=== PATIENT | female | born 1985 | race Two or more races ===

== ENCOUNTER 2019-04-15 15:35 | Emergency (ER) | payer OTHER ==
[~2019-04-15] VITALS: Ht 172.7 cm; Wt 170.1 kg
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
[2019-04-15] MEDS ORDERED: HYDROCODONE/APAP 10/325MG 1 EA TABLET ONE (16:29)
[2019-04-15] MEDS ORDERED: HYDROCODONE/APAP 10/325MG 1 EA TABLET PO ONE (16:30)
--- NOTE | 2019-04-15 16:48 | NUR ---
RETAIL FIELD SUPERVISOR AT BEDSIDE
--- NOTE | 2019-04-15 17:43 | NUR ---
Patient discharged to home in stable condition. Written and verbal after care instructions given. Patient verbalizes understanding of instruction.
[2019-04-15 17:45] VITALS: BP 119/86
== END 2019-04-15 17:45 | disposition home or self-care (01) ==
LOC: ER 15:40
DX: S80.211A Abrasion, right knee, initial encounter (principal); E66.01 Morbid (severe) obesity due to excess calories; Z68.43 Body mass index [BMI] 50.0-59.9, adult; W05.1XXA Fall from non-moving nonmotorized scooter, initial encounter; Y93.89 Activity, other specified; Y92.488 Other paved roadways as the place of occurrence of the external cause; Y99.8 Other external cause status
CPT/HCPCS: 73564-TC